=== PATIENT | male | born 1995 | race Hispanic/Latino ===

== ENCOUNTER 2017-10-13 02:45 | Emergency (ER) | payer BC, OTHER ==
--- NOTE | 2017-10-13 02:58 | ED PDOC ---
Arrival/HPI - General Time Seen by Provider: 10/13/17 02:49 Historian: Patient - History of Present Illness Narrative History of Present Illness (Text): 10/13/17 02:58 21 year old male, who denies any past medical history, presents to the emergency department complaining of bilateral mid back pain that began 10 hours ago. Patient describes the pain as a stabbing sensation. He reports he was outside throwing the trash when he twisted his back to pick something up. Patient reports worsening pain when standing up for a long period of time, but relief with a hot shower. Patient denies any fever, chills, chest pain, shortness of breath, nausea, vomiting, diarrhea, urinary symptoms, neck pain, headache, dizziness, or any other complaints. PMD: Dr. Ott Time/Duration: Other (10 hours (17:00)) Symptom Onset: Sudden Symptom Course: Unchanged Quality: Stabbing Activities at Onset: Light Context: Standing Past Medical History - Provider Review Nursing Documentation Reviewed: Yes Family/Social History - Physician Review Nursing Documentation Reviewed: Yes Family/Social History: No Known Family HX Allergies/Home Meds Allergies/Adverse Reactions: Allergies No Known Allergies Allergy (Verified 10/13/17 02:55) Review of Systems - Physician Review All systems were reviewed & negative as marked: Yes - Review of Systems Constitutional: absent: Other (Chills) Respiratory: absent: SOB Cardiovascular: absent: Chest Pain Gastrointestinal: absent: Diarrhea, Nausea, Vomiting Genitourinary Male: absent: Dysuria, Frequency, Hematuria Musculoskeletal: Back Pain. absent: Neck Pain Neurological: absent: Headache, Dizziness Physical Exam Vital Signs Temp Pulse Resp BP Pulse Ox 10/13/17 03:48 72 18 135/75 98 10/13/17 02:56 97.8 F 75 20 140/81 96 Temperature: Afebrile Blood Pressure: Normal Pulse: Regular Respiratory Rate: Normal Appearance: Positive for: Well-Appearing, Non-Toxic, Comfortable Pain Distress: None Mental Status: Positive for: Alert and Oriented X 3 - Systems Exam Head: Present: Atraumatic, Normocephalic Pupils: Present: PERRL Extroacular Muscles: Present: EOMI Conjunctiva: Present: Normal Mouth: Present: Moist Mucous Membranes Neck: Present: Normal Range of Motion Respiratory/Chest: Present: Clear to Auscultation, Good Air Exchange. No: Respiratory Distress, Accessory Muscle Use Cardiovascular: Present: Regular Rate and Rhythm, Normal S1, S2. No: Murmurs Abdomen: Present: Normal Bowel Sounds. No: Tenderness, Distention, Peritoneal Signs Back: Present: Normal Inspection, Other (bilateral paralumbar tenderness). No: CVA Tenderness Upper Extremity: Present: Normal Inspection. No: Cyanosis, Edema Lower Extremity: Present: Normal Inspection. No: Edema Neurological: Present: GCS=15, CN II-XII Intact, Speech Normal Skin: Present: Warm, Dry, Normal Color. No: Rashes Psychiatric: Present: Alert, Oriented x 3, Normal Insight, Normal Concentration Medical Decision Making ED Course and Treatment: 10/13/17 02:58 Impression: 21 year old male presents complaining of bilateral mid back pain after twisting it. Plan: -- Flexeril -- Toradol -- Urinalysis -- Reassess and disposition Progress Notes: 10/13/17 04:30 no direct trauma no indication for imaging. pain improved in er. ua neg for blood/infefection- neuro intact, no saddle anesthesia, numbness- steady gait. stable for dc outpt f/u - Lab Interpretations Lab Results: Lab Results 10/13/17 03:00: Urine Color Yellow, Urine Appearance Clear, Urine pH 6.0, Ur Specific [place] 1.020, Urine Protein Negative, Urine Glucose (UA) Negative, Urine Ketones Negative, Urine Blood Negative, Urine Nitrate Negative, Urine Bilirubin Negative, Urine Urobilinogen 0.2, Ur Leukocyte Esterase Negative - Medication Orders Current Medication Orders: Discontinued Medications Cyclobenzaprine HCl (Flexeril) 10 mg PO STAT STA Stop: 10/13/17 02:59 Last Admin: 10/13/17 03:14 Dose: 10 mg Ketorolac Tromethamine (Toradol) 30 mg IM STAT STA Stop: 10/13/17 02:59 Last Admin: 10/13/17 03:14 Dose: 30 mg [facility] Pain Assessment Document 10/13/17 03:14 JOL (Rec: 10/13/17 03:14 JO [id number]) Pain Reassessment Is this a pain reassessment? No Sleep Is patient sleeping during reassessment? No Presence of Pain Presence of Pain Yes Pain Scale Used Pain Scale Used Numeric Location Left, Right or Bilateral Bilateral Upper or Lower Upper Pain Location Body Site Back Description Intensity of Pain at present 7 IM Administration Charges Document 10/13/17 03:14 GLORIA (Rec: 10/13/17 03:14 GLORIA [id number]) Injection Site MAR Injection Site Left Deltoid Charges for Administration # of IM Administrations 1 - Scribe Statement The provider has reviewed the documentation as recorded by the Yoniibvinh Holliday Provider Scribe Attestation: All medical record entries made by the Scribe were at my direction and personally dictated by me. I have reviewed the chart and agree that the record accurately reflects my personal performance of the history, physical exam, medical decision making, and the department course for this patient. I have also personally directed, reviewed, and agree with the discharge instructions and disposition. Disposition/Present on Arrival - Present on Arrival Any Indicators Present on Arrival: No - Disposition Have Diagnosis and Disposition been Completed?: Yes Diagnosis: Back pain Disposition: HOME/ ROUTINE Disposition Time: 04:30 Condition: STABLE Discharge Instructions (ExitCare): Back Pain (ED) Additional Instructions: return to er with worsening symptoms or concerns. please see specialist. Prescriptions: Cyclobenzaprine [Cyclobenzaprine HCl] 10 mg PO DAILY PRN #10 tab PRN Reason: Muscle Spasm Naproxen 500 mg PO BID PRN #14 tab PRN Reason: Pain, Mild (1-3) Forms: [facility] (Wol[place])
[2017-10-13 03:24] VITALS: TEMP 97.8
[2017-10-13 03:40] LABS: URINE BILIRUBIN NEGATIVE (NEGATIVE); URINE BLOOD NEGATIVE (NEGATIVE); URINE GLUCOSE (UA) NEGATIVE (NEGATIVE); URINE KETONE NEGATIVE (NEGATIVE); URINE LEUKOCYTE ESTERASE NEGATIVE Leu/uL (NEGATIVE); URINE PROTEIN NEGATIVE mg/dL (<30 mg/dL); URINE UROBILINOGEN 0.2 E.U./dL (<1 E.U./dL)
[2017-10-13 03:43] LABS: URINE APPEARANCE CLEAR (CLEAR); URINE COLOR YELLOW (YELLOW)
[2017-10-13 03:55] VITALS: BP 135/75; PULSE 72; RESP 18; O2SAT 98
== END 2017-10-13 03:49 | disposition home or self-care (01) ==
LOC: ED 02:45
DX: M54.6 Pain in thoracic spine (principal)
CPT/HCPCS: 81003; 96372; 99283; J1885

== ENCOUNTER 2018-05-21 12:17 | Emergency (ER) | payer BC ==
[2018-05-21 12:20] VITALS: BMI 31.4
[2018-05-21 12:22] VITALS: RESP 18
[2018-05-21] MEDS ORDERED: Sodium Chloride 0.9% 1,000 ML IV STA (12:34)
[2018-05-21 13:19] LABS: BASO # 0.02 K/mm3 (0.0-2.0); BASO % 0.2 % (0.0-3.0); EOS # 0.1 (0.0-0.7); EOS % 1.2 % (1.5-5.0); GRAN # 6.07 (1.4-6.5); GRAN % 68.5 % (50.0-68.0); LYMPH # 2.1 (1.2-3.4); LYMPH % 23.3 % (22.0-35.0); MEAN CELL VOLUME 86.1 fl (80.0-105.0); MEAN CORPUSCULAR HGB CONC 33.7 g/dl (31.0-37.0); MEAN PLATELET VOLUME 10.1 fl (7.0-11.0); MONO # 0.6 (0.1-0.6); MONO % 6.8 % (1.0-6.0); RBC 5.17 10^6/uL (3.5-6.1); RED CELL DISTRIBUTION WIDTH 13.3 % (11.5-14.5); WHITE BLOOD COUNT 8.9 10^3/ul (4.5-11.0)
--- NOTE | 2018-05-21 13:23 | ED PDOC ---
Arrival/HPI - General Chief Complaint: GI Problem Time Seen by Provider: 05/21/18 12:29 Historian: Patient - History of Present Illness Narrative History of Present Illness (Text): 05/21/18 12:35 Hal Greenfield is a 22 year old male, with no significant past medical history, who presents to the Emergency department complaining of nausea, vomiting and lightheadedness 1 hour prior to arrival. Patient notes last night he ate pork that was still pink and a few days old. Patient denies any history of drinking or tobacco abuse. Patient denies any fever, chills, abdominal pain, chest pain, shortness of breath, diarrhea, urinary symptoms, back pain, neck pain, headache , or any other complaints. PMD: Dr. Ott Time/Duration: Prior to Arrival (1 hour prior to arrival) Symptom Onset: Gradual Symptom Course: Unchanged Activities at Onset: Light Past Medical History - Provider Review Nursing Documentation Reviewed: Yes - Infectious Disease Hx of Infectious Diseases: None - Pulmonary Hx Asthma: Yes - Psychiatric Hx Substance Use: No - Anesthesia Hx Anesthesia: No Family/Social History - Physician Review Nursing Documentation Reviewed: Yes Family/Social History: Unknown Family HX Smoking Status: Never Smoked Hx Alcohol Use: No Hx Substance Use: No Allergies/Home Meds Allergies/Adverse Reactions: Allergies No Known Allergies Allergy (Verified 10/13/17 02:55) Review of Systems - Physician Review All systems were reviewed & negative as marked: Yes - Review of Systems Constitutional: Normal. absent: Fevers Eyes: Normal ENT: Normal Respiratory: Normal. absent: SOB, Cough Cardiovascular: Normal. absent: Chest Pain Gastrointestinal: Nausea, Vomiting. absent: Normal, Stool Changes, Constipation , Diarrhea Musculoskeletal: Normal. absent: Back Pain, Neck Pain Skin: Normal. absent: Rash Neurological: Other (lightheadedness). absent: Normal, Headache Endocrine: Normal. absent: Diaphoresis Hemo/Lymphatic: Normal Psychiatric: Normal Physical Exam Vital Signs Reviewed: Yes Vital Signs Temp Pulse Resp BP Pulse Ox 05/21/18 12:21 98.0 F 104 H 18 124/83 97 Temperature: Afebrile Blood Pressure: Normal Pulse: Tachycardic (at 104) Respiratory Rate: Normal Appearance: Positive for: Well-Appearing, Non-Toxic, Comfortable Pain Distress: None Mental Status: Positive for: Alert and Oriented X 3 - Systems Exam Head: Present: Atraumatic, Normocephalic Pupils: Present: PERRL Extroacular Muscles: Present: EOMI Conjunctiva: Present: Normal Mouth: Present: Moist Mucous Membranes Neck: Present: Normal Range of Motion Respiratory/Chest: Present: Clear to Auscultation, Good Air Exchange. No: Respiratory Distress, Accessory Muscle Use Cardiovascular: Present: Regular Rate and Rhythm, Normal S1, S2. No: Murmurs Abdomen: Present: Normal Bowel Sounds. No: Tenderness, Distention, Peritoneal Signs Back: Present: Normal Inspection Upper Extremity: Present: Normal Inspection. No: Cyanosis, Edema Lower Extremity: Present: Normal Inspection. No: Edema Neurological: Present: GCS=15, CN II-XII Intact, Speech Normal Skin: Present: Warm, Dry, Normal Color. No: Rashes Psychiatric: Present: Alert, Oriented x 3, Normal Insight, Normal Concentration Medical Decision Making ED Course and Treatment: 05/21/18 12:35 Impression: Hal Greenfield is a 22 year old male who presents to the Emergency department for nausea, vomiting, and lightheadedness since this morning. Plan: -- Labs -- IV fluids -- X-Ray of abdomen -- Urinalysis -- Reassess and disposition Prior Visits: Notes and results from previous visits were reviewed. Progress Notes: 05/21/18 14:00 X-Ray of abdomen independently reviewed and interpreted by me, shows: -- Normal. No obstruction. No gastroparesis. - Lab Interpretations Lab Results: 05/21/18 13:10 05/21/18 13:10 Lab Results 05/21/18 13:57: Urine Color Yellow, Urine Appearance Clear, Urine pH 7.0, Ur Specific [place] 1.020, Urine Protein Negative, Urine Glucose (UA) Negative, Urine Ketones Negative, Urine Blood Negative, Urine Nitrate Negative, Urine Bilirubin Negative, Urine Urobilinogen 0.2, Ur Leukocyte Esterase Negative 05/21/18 13:10: Sodium 143, Potassium 4.5, Chloride 102, Carbon Dioxide 28, Anion Gap 18, BUN 17, Creatinine 1.1, Est GFR ( Amer) > 60, Est GFR (Non- Af Amer) > 60, Random Glucose 91, Calcium 9.9, Total Bilirubin 1.4 H, AST 36, ALT 64 H, Alkaline Phosphatase 85, Total Protein 8.4 H, Albumin 5.0 H, Globulin 3.4, Albumin/Globulin Ratio 1.5, Lipase 32 05/21/18 13:10: WBC 8.9, RBC 5.17, Hgb 15.0, Hct 44.5, MCV 86.1, MCH 29.0, MCHC 33.7, RDW 13.3, Plt Count 273, MPV 10.1, Gran % 68.5 H, Lymph % (Auto) 23.3, [place] % (Auto) 6.8 H, Eos % (Auto) 1.2 L, Baso % (Auto) 0.2, Gran # 6.07, Lymph # (Auto) 2.1, [place] # (Auto) 0.6, Eos # (Auto) 0.1, Baso # (Auto) 0.02 - RAD Interpretation Radiology Orders: 05/21/18 12:35 ABD 2 VIEWS (FLAT/UP OR DECUB) [RAD] Stat Employee Operations Examiner: ED Physician - Medication Orders Current Medication Orders: Discontinued Medications Sodium Chloride (Sodium Chloride 0.9%) 1,000 mls @ 999 mls/hr IV .Q1H1M STA Stop: 05/21/18 13:34 Last Admin: 05/21/18 13:16 Dose: 999 mls/hr eMAR Start Stop Document 05/21/18 13:16 HI (Rec: 05/21/18 13:17 HI [id number]) Intravenous Solution Start Date 05/21/18 Start Time 13:17 - Scribe Statement The provider has reviewed the documentation as recorded by the Scribe Fauzia Fontenot All medical record entries made by the Yoniibvinh were at my direction and personally dictated by me. I have reviewed the chart and agree that the record accurately reflects my personal performance of the history, physical exam, medical decision making, and the department course for this patient. I have also personally directed, reviewed, and agree with the discharge instructions and disposition. Disposition/Present on Arrival - Present on Arrival Any Indicators Present on Arrival: No History of DVT/PE: No History of Uncontrolled Diabetes: No Urinary Catheter: No History of Decub. Ulcer: No History Surgical Site Infection Following: None - Disposition Have Diagnosis and Disposition been Completed?: Yes Diagnosis: Vomiting Disposition: HOME/ ROUTINE Disposition Time: 14:37 Patient Plan: Discharge Condition: GOOD Discharge Instructions (ExitCare): Nausea and Vomiting, Adult (DC) Additional Instructions: Hal- Return to us if worse or new symptoms, Follow up with your regular doctor. Best- Dr. Koko Stoll Prescriptions: Ondansetron ODT [Zofran ODT] 8 mg PO TID #9 odt Referrals: PCP,NO [Primary Care Provider] - Follow up with primary Forms: [facility] (Mozambican), WORK NOTE, SCHOOL NOTE
[2018-05-21 13:28] LABS: ALB/GLOB RATIO 1.5 (1.1-1.8); CALCIUM 9.9 mg/dL (8.4-10.5); GFR AFRICAN-AMERICAN > 60; GFR NON-AFRICAN AMERICAN > 60; LIPASE 32 U/L (23-300)
[2018-05-21 14:00] LABS: URINE APPEARANCE CLEAR (CLEAR); URINE BILIRUBIN NEGATIVE (NEGATIVE); URINE BLOOD NEGATIVE (NEGATIVE); URINE COLOR YELLOW (YELLOW); URINE GLUCOSE (UA) NEGATIVE (NEGATIVE); URINE LEUKOCYTE ESTERASE NEGATIVE Leu/uL (NEGATIVE); URINE PROTEIN NEGATIVE mg/dL (<30 mg/dL); URINE UROBILINOGEN 0.2 E.U./dL (<1 E.U./dL)
--- NOTE | 2018-05-21 14:12 | RAD ---
Date of service: 05/21/2018 HISTORY: vomiting, COMPARISON: No prior. FINDINGS: BOWEL: Normal. No obstruction. No free air. BONES: Normal. OTHER FINDINGS: None. IMPRESSION: No active disease.
[2018-05-21 14:15] LABS: ALT/SGPT 64 U/L (7-56); AST/SGOT 36 U/L (17-59); BLOOD UREA NITROGEN 17 mg/dL (7-21)
[2018-05-21 14:59] VITALS: BP 122/72; PULSE 82; TEMP 98; O2SAT 99
== END 2018-05-21 14:48 | disposition home or self-care (01) ==
LOC: ED 12:17
DX: R11.2 Nausea with vomiting, unspecified (principal)
CPT/HCPCS: 74019; 80053; 81003; 83690; 85025; 99284; J7030

== ENCOUNTER 2018-08-11 17:36 | Observation (INO) | payer BC ==
[2018-08-11 17:47] VITALS: BMI 31.2
--- NOTE | 2018-08-11 18:28 | ED PDOC ---
Arrival/HPI - General Historian: Patient - History of Present Illness Narrative History of Present Illness (Text): 08/11/18 18:24 22yo male with no pmhx who present with complaint of left sided inguinal pain since this morning. Notes that pain started suddenly. States he lifts objects, but usually not heavy. States he was seen at Urgent care today for the pain and was referred to ED to r/o incarceration. He states he never noticed bulging/swelling to the area. Did not take any medication. States pain is only with palpation. Denies urinary symptoms, penile discharge, trauma, vomiting, diarrhea, constipation, fever, chills, any other complaint. <Miley Gaona A - Last Filed: 08/11/18 19:42> <Yaritza Cisneros PA-C - Last Filed: 08/11/18 23:15> - General Chief Complaint: Groin Pain Time Seen by Provider: 08/11/18 17:39 Past Medical History - Provider Review Nursing Documentation Reviewed: Yes - Infectious Disease Hx of Infectious Diseases: None - Pulmonary Hx Asthma: Yes - Psychiatric Hx Substance Use: No - Anesthesia Hx Anesthesia: No <Miley Gaona A - Last Filed: 08/11/18 19:42> Family/Social History - Physician Review Nursing Documentation Reviewed: Yes Family/Social History: Unknown Family HX Smoking Status: Never Smoked Hx Alcohol Use: No Hx Substance Use: No <Miley Gaona A - Last Filed: 08/11/18 19:42> Allergies/Home Meds <Miley Gaona A - Last Filed: 08/11/18 19:42> <Yaritza Cisneros PA-C - Last Filed: 08/11/18 23:15> Allergies/Adverse Reactions: Allergies No Known Allergies Allergy (Verified 10/13/17 02:55) Home Medications: Home Meds Medication Instructions Recorded Confirmed No Known Home Med 08/11/18 08/11/18 Review of Systems - Physician Review All systems were reviewed & negative as marked: Yes - Review of Systems Constitutional: Normal Eyes: Normal ENT: Normal Respiratory: Normal Cardiovascular: Normal Gastrointestinal: Abdominal Pain. absent: Constipation, Diarrhea, Nausea, Vomiting, Hematochezia, Hematemesis Genitourinary Male: Normal Musculoskeletal: Normal Skin: Normal Neurological: Normal Endocrine: Normal Hemo/Lymphatic: Normal Psychiatric: Normal <Diru,Happiness A - Last Filed: 08/11/18 19:42> Physical Exam Vital Signs Reviewed: Yes Vital Signs Temp Pulse Resp BP Pulse Ox 08/11/18 18:16 98.2 F 81 18 125/71 100 Temperature: Afebrile Blood Pressure: Normal Pulse: Regular Respiratory Rate: Normal Appearance: Positive for: Well-Appearing, Non-Toxic, Comfortable Pain Distress: None Mental Status: Positive for: Alert and Oriented X 3 - Systems Exam Head: Present: Atraumatic, Normocephalic Pupils: Present: PERRL Extroacular Muscles: Present: EOMI Conjunctiva: Present: Normal Mouth: Present: Moist Mucous Membranes Neck: Present: Normal Range of Motion Respiratory/Chest: Present: Clear to Auscultation, Good Air Exchange. No: Respiratory Distress, Accessory Muscle Use Cardiovascular: Present: Regular Rate and Rhythm, Normal S1, S2. No: Murmurs Abdomen: Present: Tenderness (Left pelvic/inginal area tenderness), Normal Bowel Sounds, Other (Soft). No: Distention, Peritoneal Signs, Rebound, Guarding, McBurney's Point Tender, Rovsing's Sign Present Back: Present: Normal Inspection Upper Extremity: Present: Normal Inspection. No: Cyanosis, Edema Lower Extremity: Present: Normal Inspection. No: Edema Neurological: Present: GCS=15, CN II-XII Intact, Speech Normal Skin: Present: Warm, Dry, Normal Color. No: Rashes Psychiatric: Present: Alert, Oriented x 3, Normal Insight, Normal Concentration <Diru,Happiness A - Last Filed: 08/11/18 19:42> Vital Signs Temp Pulse Resp BP Pulse Ox 08/11/18 23:00 79 18 123/69 100 08/11/18 18:16 98.2 F 81 18 125/71 100 <Yaritza Cisneros PA-C - Last Filed: 08/11/18 23:15> Medical Decision Making ED Course and Treatment: 08/11/18 19:42 22yo male in ED for left pelvic/inguinal pain. No bulging/swelling was noted to the area. PT had tenderness on palpation of the area. Labs Abdominal/Pelvic CT Pt declined pain medication in ED states the pain is bearable. will reassess Lab was unremarkable. UA pending. Case will be endorsed to Mindy PAC to f/u with CT and dispo pt. - RAD Interpretation Radiology Orders: 08/11/18 18:01 ABD & PELVIS IV CONTRAST ONLY [CT] Stat <Miley Gaona - Last Filed: 08/11/18 19:42> ED Course and Treatment: 08/11/18 20:00 Case endorsed to me from MICHELLE Gaona pending UA and CT results. 22:00 UA (-) Rest of the labs reviewed : wbc 14, CMP otherwise wnl. CT A/P : Mild diverticular changes involving the sigmoid and distal descending colon. Mild diverticulitis suggested at the sigmoid colon. Clinical correlation advised. John Paul Garrison MD 08/11/18 20:06 On re-evaluation, patient is resting in bed comfortably in no acute distress. Diagnostic results d/w the patient in great detail. Diagnosis of diverticulitis d/w the patient. Cipro IV and flagyl IV ordered. Patient reports no PMH of or FH of diverticulitis. Based on history, exam and diagnostic results, plan will be for observation. Case d/w Dr. Tam, agrees with plan for observation with consult to GI Dr. Castrejon. Patient states that he agrees with the further plan of care and disposition. I have given the patient opportunity to ask any additional questions. - Lab Interpretations Lab Results: 08/11/18 18:31 08/11/18 18:31 Lab Results 08/11/18 19:55: Urine Color Light yellow, Urine Appearance Clear, Urine pH 7.5, Ur Specific [place] <= 1.005, Urine Protein Negative, Urine Glucose (UA) Negative, Urine Ketones Negative, Urine Blood Negative, Urine Nitrate Negative, Urine Bilirubin Negative, Urine Urobilinogen 0.2, Ur Leukocyte Esterase Negative 08/11/18 18:31: Sodium 141, Potassium 4.2, Chloride 103, Carbon Dioxide 27, Anion Gap 15, BUN 17, Creatinine 1.1, Est GFR ( Amer) > 60, Est GFR (Non- Af Amer) > 60, Random Glucose 85, Calcium 9.5, Total Bilirubin 0.8, AST 30, ALT 55, Alkaline Phosphatase 94, Total Protein 8.0, Albumin 4.6, Globulin 3.4, Alb umin/Globulin Ratio 1.4 08/11/18 18:31: PT 12.6 H, INR 1.10, APTT 30.5 08/11/18 18:31: WBC 14.7 H D, RBC 5.09, Hgb 14.7, Hct 44.7, MCV 87.8, MCH 28.9, MCHC 32.9, RDW 13.4, Plt Count 276, MPV 10.9, Gran % 62.3, Lymph % (Auto) 29.7, Hand % (Auto) 6.5 H, Eos % (Auto) 1.4 L, Baso % (Auto) 0.1, Gran # 9.16 H, Lymph # (Auto) 4.4 H, Hand # (Auto) 1.0 H, Eos # (Auto) 0.2, Baso # (Auto) 0.02 - RAD Interpretation Radiology Orders: 08/11/18 18:01 ABD & PELVIS IV CONTRAST ONLY [CT] Stat - Medication Orders Current Medication Orders: Ciprofloxacin (Cipro 400mg/200ml Dsw) 400 mg in 200 mls @ 133.3 mls/hr IVPB Q12 NEMESIO; Protocol Stop: 08/11/18 23:31 Discontinued Medications Metronidazole (Flagyl) 500 mg in 100 mls @ 100 mls/hr IVPB STAT STA; Protocol Stop: 08/11/18 22:41 Last Admin: 08/11/18 22:30 Dose: 100 mls/hr eMAR Start Stop Document 08/11/18 22:30 LA (Rec: 08/11/18 22:30 LA [id number]) Intravenous Solution Start Date 08/11/18 Start Time 22:30 End Date 08/11/18 End time 23:30 Total Infusion Time 60 <Yaritza Cisneros PA-C - Last Filed: 08/11/18 23:15> - PA / OUTPATIENT CODER / Resident Statement / has reviewed & agrees with the documentation as recorded. <Yaritza Cisneros PA-C - Last Filed: 08/11/18 23:15> Disposition/Present on Arrival - Present on Arrival History of DVT/PE: No History of Uncontrolled Diabetes: No Urinary Catheter: No History of Decub. Ulcer: No History Surgical Site Infection Following: None <Diru,Happiness A - Last Filed: 08/11/18 19:42> - Present on Arrival Any Indicators Present on Arrival: No History of DVT/PE: No History of Uncontrolled Diabetes: No Urinary Catheter: No History of Decub. Ulcer: No - Disposition Have Diagnosis and Disposition been Completed?: Yes Disposition Time: 22:30 Patient Plan: Observation <Yaritza Cisneros PA-C - Last Filed: 08/11/18 23:15> - Disposition Diagnosis: Acute diverticulitis Disposition: HOSPITALIZED Condition: STABLE Referrals: PCP,NO [Primary Care Provider] - Follow up with primary Forms: [facility] (Slovenian)
[2018-08-11 18:49] LABS: BASO # 0.02 K/mm3 (0.0-2.0); BASO % 0.1 % (0.0-3.0); EOS # 0.2 (0.0-0.7); EOS % 1.4 % (1.5-5.0); GRAN # 9.16 (1.4-6.5); GRAN % 62.3 % (50.0-68.0); HEMOGLOBIN 14.7 g/dL (14.0-18.0); LYMPH # 4.4 (1.2-3.4); LYMPH % 29.7 % (22.0-35.0); MEAN CELL VOLUME 87.8 fl (80.0-105.0); MEAN CORPUSCULAR HEMOGLOBIN 28.9 pg (25.0-35.0); MEAN CORPUSCULAR HGB CONC 32.9 g/dl (31.0-37.0); MEAN PLATELET VOLUME 10.9 fl (7.0-11.0); MONO % 6.5 % (1.0-6.0); RBC 5.09 10^6/uL (3.5-6.1); RED CELL DISTRIBUTION WIDTH 13.4 % (11.5-14.5); WHITE BLOOD COUNT 14.7 10^3/ul (4.5-11.0)
[2018-08-11 18:51] LABS: ALB/GLOB RATIO 1.4 (1.1-1.8); ALBUMIN 4.6 g/dL (3.0-4.8); ALT/SGPT 55 U/L (7-56); AST/SGOT 30 U/L (17-59); BLOOD UREA NITROGEN 17 mg/dL (7-21); CALCIUM 9.5 mg/dL (8.4-10.5); GFR NON-AFRICAN AMERICAN > 60
[2018-08-11 19:52] LABS: INR 1.1; PARTIAL THROMBOPLASTIN TIME 30.5 Seconds (25.1-36.5); PROTHROMBIN TIME 12.6 SECONDS (9.4-12.5)
[2018-08-11 20:24] LABS: PH,URINE 7.5 (4.7-8.0); URINE BILIRUBIN NEGATIVE (NEGATIVE); URINE BLOOD NEGATIVE (NEGATIVE); URINE GLUCOSE (UA) NEGATIVE (NEGATIVE); URINE LEUKOCYTE ESTERASE NEGATIVE Leu/uL (NEGATIVE); URINE PROTEIN NEGATIVE mg/dL (<30 mg/dL); URINE UROBILINOGEN 0.2 E.U./dL (<1 E.U./dL)
[2018-08-11 20:26] LABS: URINE APPEARANCE CLEAR (CLEAR); URINE COLOR LIGHT YELLOW (YELLOW)
[2018-08-11] MEDS ORDERED: metroNIDAZOLE IV 500 mg/100 ml 500 MG/100 ML BAG IVPB STA (21:42)
[2018-08-11] MEDS ORDERED: Ciprofloxacin 400mg/200ml D5W 400 MG/200 ML BAG IVPB SCH (22:00)
[2018-08-11] MEDS ORDERED: Sodium Chloride 0.9% 1,000 ML IV STA (23:16)
--- NOTE | 2018-08-12 08:28 | CT ---
Date of service: 08/11/2018 PROCEDURE: CT Abdomen and Pelvis without intravenous contrast HISTORY: left groin pain/swelling COMPARISON: None. TECHNIQUE: Technique. Contrast dose: Radiation dose: Total exam DLP = 952.89 mGy-cm. This CT exam was performed using one or more of the following dose reduction techniques: Automated exposure control, adjustment of the mA and/or kV according to patient size, and/or use of iterative reconstruction technique. FINDINGS: LOWER THORAX: Unremarkable. LIVER: Unremarkable. No gross lesion or ductal dilatation. GALLBLADDER AND BILE DUCTS: Unremarkable. PANCREAS: Unremarkable. No gross lesion or ductal dilatation. SPLEEN: Unremarkable. ADRENALS: Unremarkable. No mass. KIDNEYS AND URETERS: Unremarkable. No hydronephrosis. No solid mass. VASCULATURE: Unremarkable. No aortic aneurysm. No aortic atherosclerotic calcification or mural plaque present. BOWEL: Mild pericolonic fat infiltration along the descending colon most likely representing epiploic appendagitis. No evidence of diverticulosis.. No obstruction. No gross mural thickening. APPENDIX: Unremarkable. Normal appendix. PERITONEUM: Unremarkable. No free fluid. No free air. LYMPH NODES: Unremarkable. No enlarged lymph nodes. BLADDER: Unremarkable. REPRODUCTIVE: Unremarkable. BONES: No acute fracture. OTHER FINDINGS: None. IMPRESSION: Mild pericolonic fat infiltration along the descending colon most likely representing epiploic appendagitis. No evidence of diverticulosis..
--- NOTE | 2018-08-12 09:29 | CP.PCM.CON ---
History of Present Illness - History of Present Illness History of Present Illness: PGY-4 GI Fellow Consult Note Pt is a 22 yo WM w/o medical history presenting with complaint of abdominal pain. He states while at school yesterday he began to noticed some dull, LLQ pain that became progressively worse to a sharp, non-radiating pain as the day progressed. States symptoms were worse when pressing on the area or when coughing. Reports some improvement when able curl up/lay down. He originally presented to urgent care who sent him to ED for evaluation for possible incarcerated hernia. However, CT did not show hernia but rather signs of sigmoid diverticulitis. WBC count was 14.7 and antibiotics were started; GI called for further evaluation. Pt states that symptoms already improved some this AM. States that he had never had anything like this before. States that he dad has "Colitis that is worse with corn syrup" but is unsure regarding any other details. He denies any dysphagia, melena, hematochezia, vision changes, oral ulcers, joint pains or NSAID use. States that he move his bowels easily daily without any constipation. 12 point ROS negative other than stated above MHx: None SurgHx: Wisdome teeth extraction Meds: None FamHx: Dad with unknown colitis SocHx: Denied x 3 All: NKDA Past Patient History - Infectious Disease Hx of Infectious Diseases: None - Past Social History Smoking Status: Never Smoked - CARDIAC Hx Cardiac Disorders: No - PULMONARY Hx Asthma: Yes - NEUROLOGICAL Hx Neurological Disorder: No - HEENT Hx HEENT Problems: No - RENAL Hx Chronic Kidney Disease: No - ENDOCRINE/METABOLIC Hx Endocrine Disorders: No - HEMATOLOGICAL/ONCOLOGICAL Hx Blood Disorders: No - INTEGUMENTARY Hx Dermatological Problems: No - MUSCULOSKELETAL/RHEUMATOLOGICAL Hx Musculoskeletal Disorders: No Hx Falls: No - GASTROINTESTINAL Hx Gastrointestinal Disorders: No - GENITOURINARY/GYNECOLOGICAL Hx Genitourinary Disorders: No - PSYCHIATRIC Hx Psychophysiologic Disorder: No - SURGICAL HISTORY Hx Surgeries: No - ANESTHESIA Hx Anesthesia: No Meds Home Medications: Home Medication List Medication Instructions Recorded Confirmed Type Amoxicillin/Clavulanate [Augmentin 1 tab PO BID #20 tab 08/12/18 Rx 875 MG-125 MG] Allergies/Adverse Reactions: Allergies Allergy/AdvReac Type Severity Reaction Status Date / Time No Known Allergies Allergy Verified 10/13/17 02:55 - Medications Medications: Current Medications Ciprofloxacin (Cipro 400mg/200ml Dsw) 400 mg in 200 mls @ 133.3 mls/hr IVPB Q12 NEMESIO; Protocol Stop: 08/12/18 11:31 Metronidazole (Flagyl) 500 mg in 100 mls @ 100 mls/hr IVPB Q8 NEMESIO; Protocol Physical Exam - Constitutional Appears: Well, No Acute Distress - Head Exam Head Exam: ATRAUMATIC, NORMAL INSPECTION - Eye Exam Eye Exam: EOMI. absent: Conjunctival injection, Scleral icterus - ENT Exam ENT Exam: Mucous Membranes Dry, Normal External Ear Exam. absent: Mucous Membranes Moist - Respiratory Exam Respiratory Exam: Clear to Auscultation Bilateral, NORMAL BREATHING PATTERN. absent: Accessory Muscle Use, Respiratory Distress - Cardiovascular Exam Cardiovascular Exam: REGULAR RHYTHM, RRR - GI/Abdominal Exam GI & Abdominal Exam: Normal Bowel Sounds, Soft, Tenderness (ttp in LLQ w/o guarding). absent: Bruit, Diminished Bowel Sounds, Distended, Firm, Guarding, Hernia, Hyperactive Bowel Sounds, Hypoactive Bowel Sounds, Mass, Organomegaly, Pulsatile Mass, Rebound, Rigid - Rectal Exam Rectal Exam: Deferred - Extremities Exam Extremities exam: Positive for: normal inspection. Negative for: pedal edema - Neurological Exam Neurological exam: Alert, CN II-XII Intact - Psychiatric Exam Psychiatric exam: Normal Affect, Normal Mood - Skin Skin Exam: Dry, Normal Color Results - Vital Signs Recent Vital Signs: Last Vital Signs Temp 98.2 F 08/11/18 18:16 Pulse 79 08/11/18 23:00 Resp 18 08/12/18 00:46 BP 123/69 08/11/18 23:00 Pulse Ox 100 08/11/18 23:00 - Labs Result Diagrams: 08/12/18 09:15 08/12/18 09:15 Labs: Laboratory Results - last 24 hr 08/11/18 08/11/18 08/11/18 18:31 18:31 18:31 WBC 14.7 H D RBC 5.09 Hgb 14.7 Hct 44.7 MCV 87.8 MCH 28.9 MCHC 32.9 RDW 13.4 Plt Count 276 MPV 10.9 Gran % 62.3 Lymph % (Auto) 29.7 [place] % (Auto) 6.5 H Eos % (Auto) 1.4 L Baso % (Auto) 0.1 Gran # 9.16 H Lymph # (Auto) 4.4 H [place] # (Auto) 1.0 H Eos # (Auto) 0.2 Baso # (Auto) 0.02 PT 12.6 H INR 1.10 APTT 30.5 Sodium 141 Potassium 4.2 Chloride 103 Carbon Dioxide 27 Anion Gap 15 BUN 17 Creatinine 1.1 Est GFR ( Amer) > 60 Est GFR (Non-Af Amer) > 60 Random Glucose 85 Calcium 9.5 Total Bilirubin 0.8 AST 30 ALT 55 Alkaline Phosphatase 94 Total Protein 8.0 Albumin 4.6 Globulin 3.4 Albumin/Globulin Ratio 1.4 Urine Color Urine Appearance Urine pH Ur Specific [place] Urine Protein Urine Glucose (UA) Urine Ketones Urine Blood Urine Nitrate Urine Bilirubin Urine Urobilinogen Ur Leukocyte Esterase 08/11/18 19:55 WBC RBC Hgb Hct MCV MCH MCHC RDW Plt Count MPV Gran % Lymph % (Auto) [place] % (Auto) Eos % (Auto) Baso % (Auto) Gran # Lymph # (Auto) [place] # (Auto) Eos # (Auto) Baso # (Auto) PT INR APTT Sodium Potassium Chloride Carbon Dioxide Anion Gap BUN Creatinine Est GFR ( Amer) Est GFR (Non-Af Amer) Random Glucose Calcium Total Bilirubin AST ALT Alkaline Phosphatase Total Protein Albumin Globulin Albumin/Globulin Ratio Urine Color Light yellow Urine Appearance Clear Urine pH 7.5 Ur Specific [place] <= 1.005 Urine Protein Negative Urine Glucose (UA) Negative Urine Ketones Negative Urine Blood Negative Urine Nitrate Negative Urine Bilirubin Negative Urine Urobilinogen 0.2 Ur Leukocyte Esterase Negative Assessment & Plan - Assessment and Plan (Free Text) Assessment: 22 yo WM w/o medical history presenting with abd pain. # Abd Pain: Due to acute, uncomplicated sigmoid diverticulitis. 1st episode and no signs of abscess, perf, mass on CT. Somewhat young patient to present with this; therefore will certainly be all more important to had further investigation with outpatient colonoscopy once symptoms improve after course of antibiotics. Interestingly, pt report father with "colitis" with unknown details. Plan: - Ciprofloxacin + Metronidazole or equivalent PO antibiotic x 7-10 days - ADAT - Low fiber diet during abx course, then transition to high fiber - Outpatient Colonoscopy 6-8 weeks Pt discussed with Dr. Castrejon; see attestation for further recs/changes
[2018-08-12 09:33] VITALS: TEMP 98.1
[2018-08-12 09:38] LABS: HEMOGLOBIN 14.9 g/dL (14.0-18.0); MEAN CELL VOLUME 87.1 fl (80.0-105.0); MEAN CORPUSCULAR HEMOGLOBIN 29.1 pg (25.0-35.0); MEAN CORPUSCULAR HGB CONC 33.4 g/dl (31.0-37.0); MEAN PLATELET VOLUME 10.5 fl (7.0-11.0); RBC 5.12 10^6/uL (3.5-6.1); RED CELL DISTRIBUTION WIDTH 13.4 % (11.5-14.5); WHITE BLOOD COUNT 11.2 10^3/ul (4.5-11.0)
[2018-08-12 09:48] LABS: ALB/GLOB RATIO 1.3 (1.1-1.8); ALBUMIN 4.3 g/dL (3.0-4.8); ALT/SGPT 48 U/L (7-56); AST/SGOT 25 U/L (17-59); BLOOD UREA NITROGEN 15 mg/dL (7-21); CALCIUM 9.2 mg/dL (8.4-10.5); GFR NON-AFRICAN AMERICAN > 60
[2018-08-12] MEDS ORDERED: Ciprofloxacin 400mg/200ml D5W 400 MG/200 ML BAG IVPB SCH (10:00)
[2018-08-12] MEDS ORDERED: Amoxicillin-Clav 875-125 mg Tab PO SCH (10:00)
[2018-08-12] MEDS ORDERED: metroNIDAZOLE IV 500 mg/100 ml 500 MG/100 ML BAG IVPB SCH (14:00)
[2018-08-12 14:56] VITALS: BP 130/80; PULSE 91; RESP 18; O2SAT 96
--- NOTE | 2018-08-12 18:41 | CON ---
DATE: 08/12/2018 LOCATION: The patient is seen earlier this morning in 571, bed #2. The patient's father is at the bedside. CHIEF COMPLAINT: Left lower quadrant abdominal pain x1 day duration. HISTORY OF PRESENT ILLNESS: A 22-year-old male with no significant past medical history except for asthma who was admitted through the emergency room, was seen in the emergency room by Dr. Miley Gaona. The patient complained of left lower quadrant pain associated with no fevers, no chills, no chest pain, no cough, no dysuria or frequency, no discharge. REVIEW OF SYSTEMS: performed. PAST MEDICAL HISTORY: Significant for asthma. PAST SURGICAL HISTORY: Significant for wisdom tooth removal. ALLERGIES: THE PATIENT HAS NO KNOWN ALLERGIES. MEDICATIONS AT HOME: Not on any medications. PHYSICAL EXAMINATION: GENERAL: The patient is in bed. VITAL SIGNS: Temperature of 98, blood pressure is 120/70, respiratory rate of 18, heart rate of 81. HEENT: Unremarkable. NECK: Supple. LUNGS: Have decreased breath sounds. HEART: Normal S1, S2. ABDOMEN: Soft. Mild tenderness in the left lower quadrant. No rebound or guarding. LABORATORY DATA: Reveals a white count of 14,700, hemoglobin of 14. Coagulation is noted. BUN of 15, creatinine of 1.1. Slight increase in bilirubin. Urinalysis is completely negative. I reviewed a CAT scan of the abdomen and pelvis representing mild pericolonic fat infiltration in descending colon. There is no evidence of diverticulosis according to Dr. Shaw Colon. Dr. Bridger Everett's, the Gastroenterology fellow, consultation is reviewed. He states that the patient has uncomplicated sigmoid diverticulitis upon review of his CAT scan report. He is planning an outpatient colonoscopy followup. ASSESSMENT AND PLAN: This is a 22-year-old male with history of asthma, no family history of diverticular disease, presenting with leukocytosis and left lower quadrant pain. Most unusual to have diverticulitis at the age of 22; however, unless it is a familial pathology, at this time with acute diverticulitis, the patient is for discharge. We were asked to see the patient in regards to p.o. antibiotics, and we recommended discontinuing Cipro and Flagyl and treat the patient with p.o. Augmentin. Do an HIV test on him just because of his age, although he is not sexually active according to the patient and should follow closely with PMD and Gastroenterology. Yoshi Ramirez MD [facility] # [id number]
--- NOTE | 2018-08-12 21:27 | HP ---
HISTORY OF PRESENT ILLNESS: I was called this morning about him from the ER doctor, telling me, he had diverticulitis, he needs to be in the hospital for IV antibiotics, that was [id number]. He is a 22-year-old white male who presents with left-sided inguinal pain, started suddenly, he was lifting objects. He came in to rule out incarceration of a hernia. He was on no medications. Pain is only with palpation. He has a history of asthma, but has not acted up in a long time. FAMILY HISTORY: Unknown family history. SOCIAL HISTORY: Nonsmoker. Nondrinker. No drugs. ALLERGIES: NO KNOWN DRUG ALLERGIES. MEDICATIONS: He does not take any medication. REVIEW OF SYSTEMS: No vision changes or hearing changes. No sore throat. No shortness of breath or cough. No chest pain or palpitations. He does have abdominal pain. There is no constipation, diarrhea, nausea, or vomiting. He is urinating okay. No back pain or leg pains. No skin issues. No anxiety or depression. No other issues for him psychologically. PHYSICAL EXAMINATION VITAL SIGNS: He has a 98.2 temperature, 81 pulse, 18 respiratory rate, 125/71 blood pressure, and 100% O2 sat on room air. GENERAL: He is well appearing, nontoxic, comfortable, alert and oriented x3. HEENT: Head is atraumatic and normocephalic. Extraocular muscles are intact. Pupils are equal and reactive to light. Throat is moist. NECK: Supple. HEART: Regular rate. Normal S1, S2. LUNGS: Clear to auscultation bilaterally. No wheezes or rhonchi. No rales. ABDOMEN: He has left pelvic area of tenderness. Normal bowel sounds. No distention or guarding. No back pain. EXTREMITIES: No swelling of the legs. NEUROLOGIC: GCS is 15. Cranial nerves II through XII grossly intact. Normal speech. Alert and oriented x3. SKIN: Warm and dry. He had no bulging or swelling in the area. No apparent hernia appreciated. DIAGNOSTIC DATA: He had a CT scan of the abdomen and pelvis which showed mild pericolonic fat infiltration along the descending colon, most likely representing epiploic appendagitis. No evidence of diverticulosis. Bones are okay. Reproductive is okay. Unremarkable bladder. Unremarkable lymph nodes. No lymph nodes appreciated. Peritoneum, no free air. No fluid. Unremarkable appendix. Bowel, as stated, no evidence of diverticulosis or obstruction or mural thickening. , no aortic aneurysm. Unremarkable kidneys. No masses appreciative. Liver is okay. Lower thoracic is okay. ASSESSMENT AND PLAN: I will call in Gastrointestinal to evaluate. If everything is okay, I will stop the Cipro and Flagyl and possibly discharge him later today. He is n.p.o. right now. The pain is much better. I will see how he does this morning, and if we can, we will try and increase his diet and may be discharge him later this afternoon. He is in observation and he is here for abdominal pain. Vaibhav Tam DO MTDD
== END 2018-08-12 17:58 | disposition home or self-care (01) ==
LOC: ED 17:36 → ERH 23:15 → UNDOADMOB 23:43 → ERH 08-12 00:28 → 5RSO 08-12 01:39
PROVIDERS: ADMIT Family Medicine; ATTEND Family Medicine
DX: K57.32 Diverticulitis of large intestine without perforation or abscess without bleeding (principal); D72.829 Elevated white blood cell count, unspecified; Z87.09 Personal history of other diseases of the respiratory system
CPT/HCPCS: 36415; 74177; 80053; 81003; 85025; 85027; 85610; 85730; 87040; 87389; 96365; 96367; 96375; 99285; G0378; J0744; Q9967